=== PATIENT | male | born 1960 | race Caucasian/White ===

== ENCOUNTER 2017-12-31 12:12 | Emergency (ER) | payer BC ==
[2017-12-31] MEDS ORDERED: Acetaminophen 325 MG Tab PO ONE (13:07)
[2017-12-31] MEDS ORDERED: LORazepam 2 MG/ML SDV IVPUSH ONE (13:09)
[2017-12-31] MEDS ORDERED: Sodium Chloride 0.9% 10 ML Syringe FLUSH PRN (13:09)
[2017-12-31] MEDS ORDERED: Sodium Chloride 0.9% 1,000 ML IV ONE (13:09)
--- NOTE | 2017-12-31 13:18 | EDM.PDOC ---
ED HPI GENERAL MEDICAL PROBLEM - General Chief Complaint: Neurological Problem Stated Complaint: VOMITING AND OFF BALANCE Time Seen by Provider: 12/31/17 12:56 Source of Information: Reports: Patient History Limitations: Reports: No Limitations - History of Present Illness INITIAL COMMENTS - FREE TEXT/NARRATIVE: Patient is a 57-year-old male who states last night approximately 3:00 he got up to get up going to the bathroom. While doing so he felt like his balance was altered. States that approximate 6:00 in the morning he awoke with severe vertigo. Symptoms were worsened with turning his head left to right. Turning to the right was worse than the left. Throughout the morning to does have gradually improved. With examination to the ED he has minimal symptoms from moving his head left to right. Although he does admit to have an unsteady gait. He has a slight headache posteriorly with neck described as being stiff. At times has blurred vision. Has vomited multiple times this morning secondary to the dizziness. He had similar symptoms few years ago that resolved on its own. Patient states he is concerned something is going on in his head. He is requesting CT of the head. He has a history of stroke in the past. No cardiac issues. States yesterday while the [place] he did drink 4 beers out in the heat. Questions dehydration. He's had no other concerning symptoms including: Weakness , paralysis, facial droop, slurred speech, confusion, vision loss, chest pain, short of breath, fever/chills, stiff neck, nor has he hit his head. Occipital Headache Pain Score (Numeric/FACES): 6 - Related Data Allergies Allergy/AdvReac Type Severity Reaction Status Date / Time No Known Allergies Allergy Verified 12/31/17 12:24 Home Meds: Home Meds Meclizine [Antivert] 25 mg PO TID PRN #21 tab.chew 12/31/17 [Rx] Ondansetron [Zofran ODT] 4 mg PO Q6H PRN #12 tab.dis 12/31/17 [Rx] Past Medical History HEENT History: Reports: Impaired Vision - Past Surgical History Musculoskeletal Surgical History: Reports: Other (See Below) Other Musculoskeletal Surgeries/Procedures:: right ankle fusion Social & Family History - Tobacco Use Smoking Status *Q: Never Smoker - Caffeine Use Caffeine Use: Reports: Coffee - Recreational Drug Use Recreational Drug Use: No ED ROS GENERAL - Review of Systems Review Of Systems: ROS reveals no pertinent complaints other than HPI. ED EXAM, DIZZINESS - Physical Exam Exam: See Below Exam Limited By: No Limitations General Appearance: Alert, WD/WN, No Apparent Distress Eye Exam: Bilateral Eye: EOMI, Normal Inspection, Nystagmus (None noted), PERRL Ears: Hearing Grossly Normal Nose: Normal Inspection, Normal Mucosa, No Blood Throat/Mouth: Normal Inspection, Normal Oropharynx, Normal Voice, No Airway Compromise Head Exam: Atraumatic, Normocephalic Neck: Normal Inspection, Supple, Non-Tender, Full Range of Motion Respiratory/Chest: No Respiratory Distress, Lungs Clear, Normal Breath Sounds, No Accessory Muscle Use, Chest Non-Tender Cardiovascular: Normal Peripheral Pulses, Regular Rate, Rhythm, No Murmur GI/Abdominal: Normal Bowel Sounds, Soft, Non-Tender, No Organomegaly, No Distention Neurological: Alert, Normal Mood/Affect, Normal Dorsiflexion, CN II-XII Intact, Normal Plantar Flexion, No Motor/Sensory Deficits, Oriented x 3, Other (No facial droop, slurred speech, tongue deviation, weakness discrepancy to the upper/lower extremities, pronator drift. Finger-nose and rapid alternating movements are in place.) Back Exam: Normal Inspection Extremities: Normal Inspection, Normal Range of Motion, Non-Tender, No Pedal Edema Psychiatric: Normal Affect, Normal Mood Skin Exam: Warm, Dry, Intact, Normal Color Course - Vital Signs Last Recorded V/S: Last Vital Signs Temp 98.7 F 12/31/17 12:24 Pulse 66 12/31/17 12:24 Resp 15 12/31/17 12:24 BP 146/91 H 12/31/17 12:24 Pulse Ox 99 12/31/17 12:24 Orthostatic Blood Pressure [ 130/90 Standing] Orthostatic Blood Pressure [ 132/84 Sitting] Orthostatic Blood Pressure [ 126/80 Supine] - Orders/Labs/Meds Orders: Active Orders 24 hr Category Date Time Status EKG 12 Lead [EKG Documentation Completion] [RC] STAT Care 12/31/17 13:12 Active Orthostatic Vital Signs [RC] ASDIRECTED Care 12/31/17 13:09 Active Peripheral IV Care [RC] . DIRECTED Care 12/31/17 13:09 Active CTA Head W & W/O Contrast [Ang Head] [CT] Stat Exams 12/31/17 14:11 Taken Sodium Chloride 0.9% [Saline Flush] Med 12/31/17 13:09 Active 10 ml FLUSH ASDIRECTED PRN Peripheral IV Insertion Adult [OM.PC] Routine Oth 12/31/17 13:09 Ordered Medication Orders Sodium Chloride (Saline Flush) 10 ml FLUSH ASDIRECTED PRN PRN Reason: Keep Vein Open Last Admin: 12/31/17 13:54 Dose: 10 ml Labs: Laboratory Tests 12/31/17 12/31/17 12/31/17 Range/Units 13:15 13:25 13:25 WBC 8.75 (4.23-9.07) K/mm3 RBC 5.75 (4.63-6.08) M/mm3 Hgb 16.6 (13.7-17.5) gm/L Hct 50.1 (40.1-51.0) % MCV 87.1 (79.0-92.2) fl MCH 28.9 (25.7-32.2) pg MCHC 33.1 (32.2-35.5) g/dl RDW Std Deviation 43.0 (35.1-43.9) fL Plt Count 263 (163-337) K/mm3 MPV 10.4 (9.4-12.3) fl Neutrophils % (Manual) 82 H (40-60) % Band Neutrophils % 0 (0-10) % Lymphocytes % (Manual) 14 L (20-40) % Atypical Lymphs % 0 % Monocytes % (Manual) 4 (2-10) % Eosinophils % (Manual) 0 L (0.8-7.0) % Basophils % (Manual) 0 L (0.2-1.2) Platelet Estimate Adequate Plt Morphology Comment Normal RBC Morph Comment Normal Sodium 141 (136-145) mEq/L Potassium 3.7 (3.5-5.1) mEq/L Chloride 104 (98-107) mEq/L Carbon Dioxide 26 (21-32) mEq/L Anion Gap 14.7 (5-15) BUN 13 (7-18) mg/dL Creatinine 1.2 (0.7-1.3) mg/dL Est Cr Clr Drug Dosing 83.38 mL/min Estimated GFR (MDRD) > 60 (>60) mL/min BUN/Creatinine Ratio 10.8 L (14-18) Glucose 109 H (74-106) mg/dL Calcium 8.6 (8.5-10.1) mg/dL Total Bilirubin 0.7 (0.2-1.0) mg/dL AST 18 (15-37) U/L ALT 26 (16-63) U/L Alkaline Phosphatase 98 (46-116) U/L Troponin I < 0.017 (0.00-0.056) ng/mL C-Reactive Protein < 0.2 (<1.0) mg/dL Total Protein 7.8 (6.4-8.2) g/dl Albumin 3.7 (3.4-5.0) g/dl Globulin 4.1 gm/dL Albumin/Globulin Ratio 0.9 L (1-2) Urine Color Yellow (Yellow) Urine Appearance Clear (Clear) Urine pH 8.5 H (5.0-8.0) Ur Specific [place] 1.015 (1.005-1.030) Urine Protein Negative (Negative) Urine Glucose (UA) Negative (Negative) Urine Ketones Negative (Negative) Urine Occult Blood Negative (Negative) Urine Nitrite Negative (Negative) Urine Bilirubin Negative (Negative) Urine Urobilinogen 0.2 (0.2-1.0) Ur Leukocyte Esterase Negative (Negative) Urine RBC Not seen (0-5) /hpf Urine WBC 0-5 (0-5) /hpf Ur Epithelial Cells 0-5 (0-5) /hpf Urine Bacteria Few (FEW) /hpf Urine Mucus Few (FEW) /hpf Meds: Medications Generic Name Dose Route Start Last Admin Trade Name Freq PRN Reason Stop Dose Admin Sodium Chloride 10 ml 12/31/17 13:09 12/31/17 13:54 Saline Flush FLUSH 10 ml ASDIRECTED PRN Administration Keep Vein Open Discontinued Medications Generic Name Dose Route Start Last Admin Trade Name Freq PRN Reason Stop Dose Admin Acetaminophen 650 mg 12/31/17 13:07 12/31/17 13:54 Tylenol PO 12/31/17 13:08 650 mg NOW ONE Administration Sodium Chloride 1,000 mls @ 500 mls/hr 12/31/17 13:09 12/31/17 13:54 Normal Saline IV 12/31/17 15:08 500 mls/hr ONETIME ONE Administration Sodium Chloride 100 mls @ 4 mls/sec 12/31/17 14:45 12/31/17 14:46 Normal Saline IV 12/31/17 14:46 4 mls/sec ONETIME ONE Administration Iopamidol 100 ml 12/31/17 14:45 12/31/17 14:46 Isovue-370 (76%) IVPUSH 12/31/17 14:46 100 ml ONETIME ONE Administration Lorazepam 0.5 mg 12/31/17 13:09 12/31/17 13:55 Ativan IVPUSH 12/31/17 13:10 0.5 mg ONETIME ONE Administration Meclizine HCl 25 mg 12/31/17 13:10 12/31/17 13:54 Antivert PO 12/31/17 13:11 25 mg ONETIME ONE Administration - Re-Assessments/Exams Free Text/Narrative Re-Assessment/Exam: IV established with normal saline, Ativan 0.5 mg IVP, meclizine 25 mg by mouth, and Tylenol 650 mg by mouth. Initial labs and studies include: CBC, chem 14, CRP, troponin, UA, orthostatic vitals, and EKG. EKG: Sinus rhythm with no acute ST changes noted. Tolerated standing and walking. Patient does have some discomfort noted to the base of this call with a stiff neck. He is concerned us some form of intracranial abnormality and thus is requesting imaging of the brain be obtained. With his history of sudden onset of vertigo with a headache and balance issues a little weight for creatinine come back and perform CTA of the head and neck. I did speak to Dr. Seo in relation to this and he agrees with plan. 12/31/17 14:05 per nursing staff patient tolerated standing with some mild/ moderate dizziness. No sensation of passing out. Orthostatic vitals were negative. 1413 Reassessment, patient resting comfortably in bed. States dizziness persists moderate in intensity. Worsen with movement of head and upper/downward position. Still has mild headache posteriorly along the base of the skull. No nystagmus noted. Vital signs are stable. I did discuss further testing with the patient. He is requesting CT of the head to evaluate for basilar stroke. States there is a family history of strokes in the past. This is been ordered. 12/31/17 15:22 CTA head: normal. Patient has benign positional vertigo as suspected. Treatment will be meclizine upon discharge. Discharge instructions as documented. Departure - Departure Time of Disposition: 15:25 Disposition: Home, Self-Care 01 Condition: Good, Fair Clinical Impression: Benign positional vertigo Qualifiers: Laterality: unspecified laterality Qualified Code(s): H81.10 - Benign paroxysmal vertigo, unspecified ear - Discharge Information Prescriptions: Meclizine [Antivert] 25 mg PO TID PRN #21 tab.chew PRN Reason: Dizziness Ondansetron [Zofran ODT] 4 mg PO Q6H PRN #12 tab.dis PRN Reason: Nausea/Vomiting Instructions: Benign Positional Vertigo Referrals: PCP,None [Primary Care Provider] - 3 Days Forms: ED Department Discharge Additional Instructions: Take the meclizine as prescribed. Push the fluids. Take zofran 4mg ODTfor any nausea. Please followup with PCP in the next 3 to5 days if symptoms persist. Return to the E.D. if you should experience any new or worsening symptoms. No driving today and while taking the meclizine. Nodriving if you have vertigo. - My Orders Last 24 Hours: My Active Orders 12/31/17 13:09 Orthostatic Vital Signs [RC] ASDIRECTED Peripheral IV Care [RC] . DIRECTED Sodium Chloride 0.9% [Saline Flush] 10 ml FLUSH ASDIRECTED PRN Peripheral IV Insertion Adult [OM.PC] Routine 12/31/17 13:12 EKG 12 Lead [EKG Documentation Completion] [RC] STAT 12/31/17 14:11 CTA Head W & W/O Contrast [Ang Head] [CT] Stat - Assessment/Plan Last 24 Hours: My Active Orders 12/31/17 13:09 Orthostatic Vital Signs [RC] ASDIRECTED Peripheral IV Care [RC] . DIRECTED Sodium Chloride 0.9% [Saline Flush] 10 ml FLUSH ASDIRECTED PRN Peripheral IV Insertion Adult [OM.PC] Routine 12/31/17 13:12 EKG 12 Lead [EKG Documentation Completion] [RC] STAT 12/31/17 14:11 CTA Head W & W/O Contrast [Ang Head] [CT] Stat
[2017-12-31] MEDS ORDERED: Iopamidol 755 Mg/ML 100 ML Bottle IVPUSH ONE (14:45)
[2017-12-31] MEDS ORDERED: Sodium Chloride 0.9% 100 ML IV ONE (14:45)
--- NOTE | 2018-01-01 10:50 | CT ---
CT angiogram of brain Technique: Multiple axial sections were obtained through the brain. Intravenous contrast was performed. Multiple MIP images were obtained. Findings: Dominant left vertebral artery is seen as a normal variant over the right side. Distal internal carotid arteries appear normal. Normal basilar artery is seen. Normal middle and anterior cerebral arteries are seen. Normal posterior cerebral arteries are noted. No focal stenosis or occlusion is seen. No discrete aneurysm is identified. Impression: 1. No abnormality is identified on CT angiogram of brain. Diagnostic code #1 I agree with preliminary report issued by [facility] ([facility] report finalized on 12/31/17, 4:20 PM Central Time)
== END 2017-12-31 15:57 | disposition home or self-care (01) ==
LOC: JD.ED 12:12
DX: H81.10 Benign paroxysmal vertigo, unspecified ear (principal); Z82.3 Family history of stroke
CPT/HCPCS: 36415; 70496; 80053; 81001; 84484; 85007; 85027; 86140; 93005; 96361; 96374; 99285; A9270; J2060; J7030; J7040; J7050; Q9967; 93010; 99284